=== PATIENT | female | born 1940 | race Caucasian/White ===

== ENCOUNTER → 2017-01-04 | Outpatient (CLI) | payer MEDICARE | END | disposition home or self-care (01) | LOC: GMAM 12:45 | PROVIDERS: ATTEND Family Medicine | DX: E53.8 Deficiency of other specified B group vitamins (principal); I10 Essential (primary) hypertension; E03.9 Hypothyroidism, unspecified; E11.9 Type 2 diabetes mellitus without complications ==

== ENCOUNTER → 2017-02-15 | Outpatient (CLI) | payer MEDICARE ==
--- NOTE | 2017-02-15 16:03 | CT ---
EXAM DESCRIPTION: Chest w/Contrast CLINICAL HISTORY: MALIGNANT NEOPLASM OF UPPER LOBE, BRONCHUS OR LUNG COMPARISON: February 16, 2015 TECHNIQUE: Post IV contrasted multidetector CT imaging of the chest. Multiplanar reconstructions were provided. FINDINGS: The lungs are clear with no evidence of recurrent mass. No evidence of pleural disease. The trachea is midline and unremarkable. No filling defect noted. Heart size is normal. No pericardial disease. No mediastinal lymphadenopathy. Patient is status post cholecystectomy. The upper abdomen is no acute findings. IMPRESSION: No evidence recurrence on today's study. The patient is once again status post right upper lobectomy. Electronically signed by: Ankit Jones MD 02/15/2017 4:02 PM CDT
== END | disposition home or self-care (01) ==
LOC: CT 13:32
PROVIDERS: ATTEND Internal Medicine Hematology & Oncology
DX: C34.11 Malignant neoplasm of upper lobe, right bronchus or lung (principal)

== ENCOUNTER → 2017-03-04 | Outpatient (CLI) | payer MEDICARE | END | disposition home or self-care (01) | LOC: GMAM 17:16 | PROVIDERS: ATTEND Family Medicine | DX: E87.6 Hypokalemia (principal) ==

== ENCOUNTER → 2017-05-01 | Outpatient (CLI) | payer MEDICARE | END | disposition home or self-care (01) | LOC: GMAM 16:58 | PROVIDERS: ATTEND Family Medicine | DX: D72.829 Elevated white blood cell count, unspecified (principal); D64.9 Anemia, unspecified; E53.8 Deficiency of other specified B group vitamins; R06.02 Shortness of breath; N30.00 Acute cystitis without hematuria ==

== ENCOUNTER 2017-05-02 09:54 | Emergency (ER) | payer MEDICARE ==
--- NOTE | 2017-05-02 11:37 | ED.PDOC ---
History of Present Illness - General Chief Complaint: General Stated Complaint: FEEL WEAK AND TIRED Time Seen by Provider: 05/02/17 11:15 Source: patient Exam Limitations: no limitations - History of Present Illness Initial Comments: PT C/O SOB, GEN WEAKNESS, FATIGUE, METALLIC TASTE IN MOUTH. SEVERAL WEEKS. PT HAD LABS W/ PCP YESTERDAY= D-DIMER 3180, BNP 420, HGB 8 (WAS 13 IN JANUARY), WBC 18, PLATELETS 23, AST 172, BACTERIURIA, ELEV ALK PHOS. Timing/Duration: unsure Severity: severe Improving Factors: nothing Worsening Factors: movement Associated Symptoms: loss of appetite, malaise, shortness of breath, weakness Allergies/Adverse Reactions: Allergies Cephalosporins Allergy (Verified 05/02/17 13:55) Meperidine [From Demerol HCl] Allergy (Verified 05/02/17 13:55) Penicillins Allergy (Verified 05/02/17 13:55) Sulfa Antibiotics Allergy (Verified 05/02/17 13:55) Review of Systems - Review of Systems Constitutional: States: weakness. Denies: fever EENTM: Denies: ear pain, nose congestion Respiratory: States: short of breath. Denies: cough, wheezing Cardiology: Denies: chest pain, palpitations Gastrointestinal/Abdominal: Denies: abdominal pain, constipation, diarrhea, nausea, vomiting Genitourinary: Denies: discharge, frequency, hematuria Musculoskeletal: States: joint pain, muscle pain, other - RIB AND R HIP PAIN FROM FALL 1 WK AGO, RECENT XRAY REPORTS ARE NEG FOR FRX. . Denies: neck pain Skin: States: no symptoms reported Neurological: States: no symptoms reported Endocrine: States: no symptoms reported Hematologic/Lymphatic: States: no symptoms reported All other Systems: Reviewed and Negative Family Medical History - Family History Mother Family History: Unknown Physical Exam - Physical Exam General Appearance: Alert, Frail Eye Exam: bilateral normal Ears, Nose, Throat: hearing grossly normal, normal ENT inspection Neck: non-tender, full range of motion Respiratory: chest non-tender, lungs clear, normal breath sounds Cardiovascular/Chest: normal peripheral pulses, regular rate, rhythm Peripheral Pulses: radial,right: 1+, radial,left: 1+ Gastrointestinal/Abdominal: normal bowel sounds, non tender Back Exam: normal inspection, no CVA tenderness Extremity: normal range of motion, pelvis stable, pedal edema Neurologic: felt finisher II-XII nml as tested, no motor/sensory deficits, alert, oriented x 3 Skin Exam: warm/dry, other - MULTIPLE FAINT ECCHYMOSIS Lymphatic: no adenopathy Progress - Progress Progress: 05/02/17 13:43 HGB 7.6. IT IS NOT 7 OR LOWER BUT PT IS VERY SYMPTOMATIC (WEAKNESS, FATIGUE, SOB) THUS I AM TRANSFUSING 2 UNITS PRBC IN THE ER. EKG NSR. CARDIAC ENZ NEG. UA - PT MISSED THE HAT THUS NOT YET COLLECTED (PT NOT YET NEEDING TO VOID AGAIN.) D-DIMER 2819. CTA NEG, THUS D-DIMER LIKELY ELEVATED FROM RECENT FALL ( ECCHYMOSIS L HIP; PREVIOUS XRAYS NEG). BNP 349 BUT CLINICALLY SHE IS NOT IN HEART FAILURE. AST ELEVATED AT 145. PLATELETS LOW AT 20. I WILL HAVE F/U W/ PCP FOR FURTHER TESTING. SHE SEES DR JAUREGUI, HEME/ONC. PT IS ABLE TO SAFELY TAKE CARE OF HERSELF AT HOME, THUS WILL BE SAFE FOR DC TO HOME AFTER THE BLOOD TRANSFUSION. PT WILL ALSO NEED CLOSE F/U FOR THE ANEMIA WITH HER PCP AND FURTHER TESTING ( COLONOSCOPY/EGD) TO DETERMINE THE ETIOLOGY. FECAL OCCULT BLOOD AND IRON STUDIES TODAY ARE PENDING. 05/02/17 17:05 UA NEG. IRON STUDIES LOOK WELL (TIBC NL, IRON AND FERRITIN HIGH). HEMOCCULT NEG. I SPOKE WITH DR. MOSES AND HE AGREED WITH GIVING 2 UNITS PRBC AND SENDING HER HOME SINCE VS ARE STABLE. HE HAS HER SCHEDULED FOR F/U THIS COMING SATURDAY AT 1: 30. 05/02/17 17:08 STARTING 2ND UNIT OF PRBC NOW. 05/02/17 18:23 PT STILL HEMODYNAMICALLY STABLE THUS SAFE FOR DC TO HOME AFTER PRBC, WITH CLOSE F/U WITH PCP. 05/02/17 18:25 - EKG/XRAY/CT EKG: Sinus, no ST T wave changes Departure - Departure Clinical Impression: Anemia, Transfusion of blood during current hospitalisation, Thrombocytopenia, Elevated brain natriuretic peptide (BNP) level, Elevated AST (SGOT), Elevated d- dimer Disposition: Discharge to Home or Self Care Condition: Good Instructions: Anemia Diet: resume usual diet Activity: increase activity as tolerated Referrals: Joshua Moses MD [Primary Care Provider] - 1-5 Days Additional Instructions: Dr. Moses has an appointment with you this coming Saturday at 1:30 PM and is looking forward to seeing you.
--- NOTE | 2017-05-02 12:43 | CT ---
EXAM DESCRIPTION: CTA Chest CLINICAL HISTORY: 76 years Female, D-dimer 3180, SOB, WEAKNESS, FATIGUE COMPARISON: 15 February 2017 TECHNIQUE: Transaxial images were obtained during injector demonstrated intravenous contrast media. Multiplanar reconstruction was performed. No 3-D reconstruction was performed.This exam was performed according to our departmental dose-optimization program, which includes automated exposure control, adjustment of the mA and/or kV according to patient size and/or use of iterative reconstruction technique. FINDINGS: The thyroid is normal in appearance. No pathologic axillary adenopathy is observed. A prominent pretracheal node is observed at the level of the aortic arch. It remains unchanged the previous exam. No hilar adenopathy is seen. No pleural fluid is detected. No adrenal masses are detected. Posterior pleural calcification is noted on the right. Prior partial right lung resection is noted. No pulmonary nodule or mass is detected. No evidence for pulmonary embolus is seen. No aortic abnormality is detected. Degenerative changes are seen in the thoracic spine. IMPRESSION: 1. The patient is post partial right lung resection. No interval changes observed from the prior exam. 2. No evidence of pulmonary most is seen. Electronically signed by: Roderick Uriarte MD 05/02/2017 12:42 PM CDT
[2017-05-02] MEDS ORDERED: diphenhydrAMINE HCL 50 MG/ML VIAL IV STA (13:24)
[2017-05-02] MEDS ORDERED: SODIUM CHLORIDE 0.9% 1000ML 1,000 ML IVS PRN (13:41)
[2017-05-02] MEDS ORDERED: SODIUM CHLORIDE 0.9% 250ML 250 ML ONE (14:33)
[2017-05-02] MEDS ORDERED: HYDROcodone/IBUPROFEN 7.5/200 1 EA TAB PO ONE (15:23)
[2017-05-02 18:46] VITALS: BP 158/76; TEMP 97.4; O2SAT 97
== END 2017-05-02 19:37 | disposition home or self-care (01) ==
LOC: ER 09:54
DX: D64.9 Anemia, unspecified (principal); D69.6 Thrombocytopenia, unspecified; R79.89 Other specified abnormal findings of blood chemistry; Z88.0 Allergy status to penicillin; Z88.2 Allergy status to sulfonamides
CPT/HCPCS: 36415; 71275; 80053; 81001; 82270; 82550; 82553; 82728; 83540; 83550; 83880; 84484; 85025; 85379; 86850; 86900; 86901; 86922; 93005; J1200; J7030; J7050; P9016

== ENCOUNTER 2017-05-03 18:11 | Emergency (ER) | payer MEDICARE ==
--- NOTE | 2017-05-03 18:48 | ED.PDOC ---
History of Present Illness - General Chief Complaint: General Stated Complaint: Needs evaluation of test results Time Seen by Provider: 05/03/17 18:18 Source: patient, RN notes reviewed, Vital Signs reviewed, family Exam Limitations: no limitations - History of Present Illness Initial Comments: Patient was sent in by PCP due to pathology report from yesterdays ER visit that shows acute leukemia. Just need help facilitating transfer to [facility] for treatment. Patient is feeling better after receiving 2 units of PRBC yesterday for her Hg of 7.6. No new complaints today. Timing/Duration: 24 hours Severity: severe Improving Factors: other - Transfusion Worsening Factors: movement Associated Symptoms: rash, shortness of breath, weakness Allergies/Adverse Reactions: Allergies Cephalosporins Allergy (Verified 05/02/17 13:55) Meperidine [From Demerol HCl] Allergy (Verified 05/02/17 13:55) Penicillins Allergy (Verified 05/02/17 13:55) Sulfa Antibiotics Allergy (Verified 05/02/17 13:55) Succinylcholine [From Anectine] Adverse Reaction (Verified 05/03/17 18:53) Review of Systems - Review of Systems Constitutional: States: malaise, weakness EENTM: States: no symptoms reported Respiratory: States: short of breath Cardiology: States: no symptoms reported Gastrointestinal/Abdominal: States: no symptoms reported Musculoskeletal: States: no symptoms reported Skin: States: rash, other - bruising Neurological: States: no symptoms reported Endocrine: States: no symptoms reported Past Medical History (General) - Patient Medical History Hx Stroke: No - Has had TIA's Hx Congestive Heart Failure: No Hx Hypertension: Yes Hx Thyroid Disease: Yes Hx Diabetes: Yes Hx Gastroesophageal Reflux: Yes Hx Cancer: Yes - Lung & Skin Hx Hepatitis C: No Surgical History: cholecystectomy - Vaccination History Hx Tetanus, Diphtheria Vaccination: No Hx Influenza Vaccination: Yes Hx Pneumococcal Vaccination: Yes - Social History Hx Tobacco Use: No - Stopped 26 years ago Hx Chewing Tobacco Use: No Hx Alcohol Use: Yes - Rarely Hx Substance Use: No Hx Substance Use Treatment: No Hx Depression: No Feels Threatened In Home Enviroment: No Feels Threatened In a Relationship: No Hx Physical Abuse: No Hx Emotional Abuse: No Hx Suspected Abuse: No - Female History Patient is a Female of Child Bearing Age (10 -59 yrs old): No Patient : No Family Medical History - Family History Mother Family History: Unknown Physical Exam - Physical Exam General Appearance: Alert, Comfortable, No apparent distress, Well Developed, Well Groomed, Well Hydrated, Well Nourished Neck: supple Respiratory: no respiratory distress, no accessory muscle use Extremity: normal range of motion, non-tender Neurologic: alert, normal mood/affect, oriented x 3 Skin Exam: other - Extensive petechia, purpura and ecchymosis Progress - Progress Progress: 05/03/17 18:49 Patient with history of lung cancer who now presents with acute leukemia. Spoke with CHARLI Figueroa @ [facility] transfer center. Awaiting return call to see if oncologist is available for admission. Patient would like her blood sugar checked due to drinking a Coke on the way her. Concerned she may need some insulin. 05/03/17 18:58 Fingerstick Glucose: 161 05/03/17 19:38 Spoke with [facility] Transfer line again. Oncologist said Hospitalist could admit or it would have to wait until Saturday. Awaiting call from Hospitalist. 05/03/17 19:[address] Ruiz - Hospitalist @ [facility]. Awaiting bed assignment then will d/c for daughter to delivery route driver her over. Family and patient are agreeable with plan Departure - Departure Clinical Impression: Acute leukemia of unspecified cell type, Thrombocytopenia Time of Disposition: 20:01 Disposition: Transfer to Hospital Condition: Fair Departure Forms: ED Discharge - Pt. Copy, Patient Portal Self Enrollment Referrals: Joshua Soto MD [Primary Care Provider] - 1-2 Weeks Transfer to Outside Facility - Transfer Information Accepting Provider:: Dr. Ruiz Accepting Facility: [facility] Reason for Transfer: required specialist not available
[2017-05-03 19:10] VITALS: O2SAT 97
[2017-05-03 20:21] VITALS: TEMP 98.8
[2017-05-03 21:45] VITALS: BP 159/77
== END 2017-05-03 21:45 | disposition short-term general hospital (02) ==
LOC: ER 18:11
DX: C95.00 Acute leukemia of unspecified cell type not having achieved remission (principal); D69.6 Thrombocytopenia, unspecified; E07.9 Disorder of thyroid, unspecified; E11.9 Type 2 diabetes mellitus without complications; K21.9 Gastro-esophageal reflux disease without esophagitis; I10 Essential (primary) hypertension; Z86.73 Personal history of transient ischemic attack (TIA), and cerebral infarction without residual deficits; Z87.891 Personal history of nicotine dependence; Z85.828 Personal history of other malignant neoplasm of skin; Z85.118 Personal history of other malignant neoplasm of bronchus and lung; Z88.0 Allergy status to penicillin; Z88.2 Allergy status to sulfonamides; Z88.3 Allergy status to other anti-infective agents